=== PATIENT | male | born 1930 | race Caucasian/White ===

== ENCOUNTER 2016-12-06 12:15 | Emergency (ER) | payer OTHER ==
[~2016-12-06] VITALS: Ht 170.2 cm; Wt 64.4 kg
[~2016-12-06 12:15] MED LIST: ATENOLOL50 M1 PO; ATENOLOL50 MG PO; BACLOFEN10 MG PO; CALCIUM600 M1 PO; CATAPRES-TTS 21 EACH TD; CENTRUM SILVER1 EAC3 PO; CLONAZEPAM0.5 MG PO; CLONAZEPAM1 MG PO; CLONIDINE HCL0.3 MG PO; CLONIDINE1 EACH TD; COLACE100 MG PO; DULCOLAX10 MG PR; DUONEB 2.5-0.5 M3 ML AEROSOL; FUROSEMIDE20 MG PO; FUROSEMIDE40 MG PO; HEPARIN SO5000 UNITS SC; HYDRALAZINE HC100 M1 PO; HYDRALAZINE HC100 MG PO; HYDROCODON-ACE1 EAC7 PO; LEVAQUIN750 MG PO; LEVOTHYROXINE50 MCG PO; LEVOTHYROXINE75 MCG PO; LISINOPRIL20 MG PO; LISINOPRIL40 MG PO; METHOTREXATE2.5 MG PO; MIRALAX17 GM PO; MIRALAX255 GM PO; NORCO 5/3251 TABLET PO; PHILLIPS'400 MG/5 M PO; ROCEPHIN1000 MG IV; SENNA LAX8.6 MG PO; SENNA PLUS TAB1 EACH PO; SERTRALINE HCL50 MG PO; TAMSULOSIN HCL0.4 MG PO; TRAMADOL HCL50 MG PO; TYLENOL REGULA325 MG PO; VITAMIN D31000 UNIT PO; ZESTRIL,PRINIVI40 MG PO
[2016-12-06 14:12] VITALS: BP 146/99
== END 2016-12-06 14:23 | disposition home or self-care (01) ==
LOC: EME 12:15
DX: S09.90XA Unspecified injury of head, initial encounter (principal); W05.0XXA Fall from non-moving wheelchair, initial encounter; Z87.442 Personal history of urinary calculi; N40.0 Benign prostatic hyperplasia without lower urinary tract symptoms; M81.0 Age-related osteoporosis without current pathological fracture; I10 Essential (primary) hypertension; E11.9 Type 2 diabetes mellitus without complications; E03.9 Hypothyroidism, unspecified
CPT/HCPCS: 99281; 99284

== ENCOUNTER 2017-04-03 15:57 | Emergency (ER) | payer OTHER ==
[~2017-04-03] VITALS: Ht 170.2 cm; Wt 69.0 kg
[2017-04-03 17:20] LABS: HEMATOCRIT 36.6 % (38.0-50.0); HEMOGLOBIN 12.9 G/DL (12.5-16.6); MCH 35.7 PG (29.0-34.0); MCHC 35.2 G/DL (30.0-36.0); MCV 101.4 FL (86-99); PLATELET COUNT 104 K/uL (156-360); RBC DIS.WIDTH-CV 14.6 % (11.8-14.6); RBC DIS.WIDTH-SD 54.4 % (39-53); RED BLOOD COUNT 3.61 M/uL (4.00-5.50); WHITE BLOOD COUNT 6.3 K/uL (4.1-10.2)
[2017-04-03 17:29] LABS: CHLORIDE 102 mEq/L (99-109); POTASSIUM 4.3 mEq/L (3.7-5.4); SODIUM 137 mEq/L (136-147)
[2017-04-03 17:31] LABS: GLUCOSE 148 mg/dL (70-99)
[2017-04-03 17:35] LABS: CREATININE 0.8 mg/dL (0.6-1.3); GFR ESTIMATE (CALCULATED) > 59 mL/min/ (58.99-99999)
[2017-04-03 17:36] LABS: UREA NITROGEN (BUN) 19 mg/dL (9-23)
[2017-04-03 17:41] LABS: TROP-I INTERPRETATION NEGATIVE; TROPONIN-I 0.01 ng/mL (0.0-0.30)
[2017-04-03 20:04] LABS: APPEARANCE CLEAR ((CLEAR)); BILIRUBIN NEGATIVE; BLOOD NEGATIVE; COLOR YELLOW ((YELLOW)); GLUCOSE (STRIP) NEGATIVE; KETONES NEGATIVE; LEUKOCYTES NEGATIVE; NITRITE NEGATIVE; PROTEIN (STRIP) 30; SPECIFIC GRAVITY 1.018 (1.000-1.030); UROBILINOGEN 0.2 MG/DL (0.2-1.0)
[2017-04-03 20:22] LABS: TROP-I INTERPRETATION NEGATIVE; TROPONIN-I 0.02 ng/mL (0.0-0.30)
[2017-04-03 21:24] VITALS: BP 163/101
== END 2017-04-03 21:27 | disposition home or self-care (01) ==
LOC: EME 15:57
PROVIDERS: Emergency Medicine
DX: S00.83XA Contusion of other part of head, initial encounter (principal); S00.81XA Abrasion of other part of head, initial encounter; S00.11XA Contusion of right eyelid and periocular area, initial encounter; M54.2 Cervicalgia; M25.511 Pain in right shoulder; W06.XXXA Fall from bed, initial encounter; Y92.092 Bedroom in other non-institutional residence as the place of occurrence of the external cause; R11.0 Nausea; M85.88 Other specified disorders of bone density and structure, other site; M19.011 Primary osteoarthritis, right shoulder; I10 Essential (primary) hypertension; E03.9 Hypothyroidism, unspecified
CPT/HCPCS: 70450; 70486; 71046; 72125; 72170; 73030; 80048; 81003; 84484; 85027; 93005; 99281; 99284; J2270; J2405

== ENCOUNTER 2017-07-19 07:10 | Inpatient (IN) | payer OTHER ==
[~2017-07-19] VITALS: Ht 170.2 cm; Wt 68.5 kg
[2017-07-19 08:02] LABS: BASOPHIL (%) 0.4 % (0-1); BASOPHIL COUNT 0.1 K/uL (0-0.1); EOSINOPHIL (%) 0.8 % (0-5); EOSINOPHIL COUNT 0.1 K/uL (0-0.3); HEMATOCRIT 37.5 % (38.0-50.0); IMMATURE GRANULOCYTE (%) 0.8 % (0.0-0.7); LYMPHOCYTE (%) 17.9 % (15-42); MCH 36.1 PG (29.0-34.0); MCHC 34.7 G/DL (30.0-36.0); MCV 104.2 FL (86-99); MONOCYTE (%) 7.6 % (3-12); MONOCYTE COUNT 0.9 K/uL (0-0.8); NEUTROPHIL (%) 72.5 % (45-76); NEUTROPHIL COUNT 8.2 K/uL (1.8-6.4); PLATELET COUNT 137 K/uL (156-360); RBC DIS.WIDTH-CV 14.4 % (11.8-14.6); RBC DIS.WIDTH-SD 54.5 % (39-53); WHITE BLOOD COUNT 11.3 K/uL (4.1-10.2)
[2017-07-19 08:14] LABS: INTER. NORMALIZED RATIO 1.1
[2017-07-19 08:16] LABS: PTT 24.5 SEC (25-37)
[2017-07-19 08:17] LABS: ALBUMIN 3.2 g/dL (3.2-4.8); CHLORIDE 108 mEq/L (99-109); SODIUM 144 mEq/L (136-147)
[2017-07-19 08:18] LABS: MAGNESIUM 1.7 mg/dL (1.3-2.7)
[2017-07-19 08:19] LABS: GLUCOSE 104 mg/dL (70-99)
[2017-07-19 08:20] LABS: TOTAL PROTEIN 5.5 g/dL (6.4-8.3)
[2017-07-19 08:21] LABS: TOTAL BILIRUBIN 0.6 mg/dL (0.0-1.0)
[2017-07-19 08:23] LABS: ALKALINE PHOSPHATASE 61 IU/L (3-129); CREATININE 0.8 mg/dL (0.6-1.3); GFR ESTIMATE (CALCULATED) > 59 mL/min/ (58.99-99999)
[2017-07-19 08:24] LABS: UREA NITROGEN (BUN) 23 mg/dL (9-23)
[2017-07-19 08:25] LABS: AST (GOT) 19 IU/L (2-34)
[2017-07-19 08:26] LABS: ALT (GPT) 18 IU/L (3-49)
[2017-07-19 08:27] LABS: TROP-I INTERPRETATION NEGATIVE
[2017-07-19 09:10] LABS: THYROTROPIN (TSH) 3.5 MIU/L (0.4-5.5)
[2017-07-19] MEDS ORDERED: NYSTOP60 GM TP (10:50)
[2017-07-19] MEDS ORDERED: MYRBETRIQ25 MG PO (10:53)
[2017-07-19] MEDS ORDERED: FOLIC ACID1 MG PO (10:53)
[2017-07-19] MEDS ORDERED: SENNA8.6 MG PO (10:54)
[2017-07-19] MEDS ORDERED: IRON325 M1 PO (10:55)
[2017-07-19] MEDS ORDERED: NORCO 5/3251 TABLET PO (10:56)
[2017-07-19] MEDS ORDERED: ZYTIGA500 MG PO (10:57)
[2017-07-19] MEDS ORDERED: EFFEXOR XR150 MG PO (10:58)
[2017-07-19] MEDS ORDERED: PREDNISONE5 MG PO (11:05)
[2017-07-19] MEDS ORDERED: ASPERCREME 1035.4 GM TP (11:07)
[2017-07-19] MEDS ORDERED: TUSSIN CHE100 MG/5 M PO (11:08)
[2017-07-19 14:23] VITALS: BP 118/74
[2017-07-19 19:27] VITALS: BP 114/80
[2017-07-19 20:57] LABS: TROP-I INTERPRETATION POSITIVE
[2017-07-19 23:56] VITALS: BP 125/76
[2017-07-20 01:06] LABS: TROP-I INTERPRETATION POSITIVE; TROPONIN-I 4.82 ng/mL (0.0-0.30)
[2017-07-20 04:29] VITALS: BP 137/83
[2017-07-20 06:40] LABS: INTER. NORMALIZED RATIO 1.1
[2017-07-20 07:39] LABS: TROP-I INTERPRETATION POSITIVE; TROPONIN-I 3.69 ng/mL (0.0-0.30)
[2017-07-20 07:53] VITALS: BP 131/76
[2017-07-20 12:04] VITALS: BP 134/85
[2017-07-20 15:19] VITALS: BP 119/78
[2017-07-20 18:14] LABS: TROP-I INTERPRETATION POSITIVE; TROPONIN-I 2.75 ng/mL (0.0-0.30)
[2017-07-20 19:25] VITALS: BP 133/79
[2017-07-21] VITALS (18 sets, daily range): BP systolic 105–173; BP diastolic 77–162
[2017-07-21 06:47] LABS: HEMATOCRIT 38.8 % (38.0-50.0); HEMOGLOBIN 13.2 G/DL (12.5-16.6); MCH 35.4 PG (29.0-34.0); PLATELET COUNT 117 K/uL (156-360); RBC DIS.WIDTH-CV 14.4 % (11.8-14.6); RBC DIS.WIDTH-SD 54.9 % (39-53); RED BLOOD COUNT 3.73 M/uL (4.00-5.50); WHITE BLOOD COUNT 6.3 K/uL (4.1-10.2)
[2017-07-21 06:52] LABS: INTER. NORMALIZED RATIO 1.1
[2017-07-21 06:55] LABS: PTT 58.2 SEC (25-37)
[2017-07-21 08:06] LABS: CHLORIDE 105 MEQ/L (99-109); CREATININE 0.8 MG/DL (0.6-1.3); GFR ESTIMATE (CALCULATED) > 59 mL/min/ (58.99-99999); GLUCOSE 130 mg/dL (70-99); POTASSIUM 4.5 MEQ/L (3.7-5.4); SODIUM 140 MEQ/L (136-147); UREA NITROGEN (BUN) 20 mg/dL (9-23)
[2017-07-22] VITALS (15 sets, daily range): BP systolic 127–161; BP diastolic 81–123
[2017-07-22 04:43] LABS: BASOPHIL (%) 0.3 % (0-1); EOSINOPHIL (%) 0.3 % (0-5); HEMATOCRIT 35.5 % (38.0-50.0); HEMOGLOBIN 12.3 G/DL (12.5-16.6); LYMPHOCYTE (%) 7.6 % (15-42); LYMPHOCYTE COUNT 0.7 K/uL (1.0-2.8); MCHC 34.6 G/DL (30.0-36.0); MCV 103.8 FL (86-99); MONOCYTE (%) 5.7 % (3-12); MONOCYTE COUNT 0.5 K/uL (0-0.8); NEUTROPHIL (%) 85.1 % (45-76); NEUTROPHIL COUNT 7.9 K/uL (1.8-6.4); PLATELET COUNT 127 K/uL (156-360); RBC DIS.WIDTH-CV 14.4 % (11.8-14.6); RBC DIS.WIDTH-SD 54.7 % (39-53); RED BLOOD COUNT 3.42 M/uL (4.00-5.50); WHITE BLOOD COUNT 9.3 K/uL (4.1-10.2)
[2017-07-22 05:00] LABS: CHLORIDE 104 mEq/L (99-109); POTASSIUM 4.4 mEq/L (3.7-5.4); SODIUM 140 mEq/L (136-147)
[2017-07-22 05:01] LABS: MAGNESIUM 1.7 mg/dL (1.3-2.7)
[2017-07-22 05:02] LABS: GLUCOSE 121 mg/dL (70-99)
[2017-07-22 05:06] LABS: CREATININE 0.8 mg/dL (0.6-1.3); GFR ESTIMATE (CALCULATED) > 59 mL/min/ (58.99-99999); PHOSPHORUS 2.5 mg/dL (2.5-4.9)
[2017-07-22 05:07] LABS: UREA NITROGEN (BUN) 17 mg/dL (9-23)
[2017-07-23 02:11] VITALS: BP 143/88
[2017-07-23 05:15] LABS: BASOPHIL (%) 0.3 % (0-1); EOSINOPHIL (%) 0.8 % (0-5); EOSINOPHIL COUNT 0.1 K/uL (0-0.3); HEMATOCRIT 37.1 % (38.0-50.0); HEMOGLOBIN 12.7 G/DL (12.5-16.6); IMMATURE GRANULOCYTE (%) 0.5 % (0.0-0.7); LYMPHOCYTE (%) 11.6 % (15-42); LYMPHOCYTE COUNT 0.9 K/uL (1.0-2.8); MCH 35.3 PG (29.0-34.0); MCHC 34.2 G/DL (30.0-36.0); MCV 103.1 FL (86-99); MONOCYTE (%) 6.2 % (3-12); MONOCYTE COUNT 0.5 K/uL (0-0.8); NEUTROPHIL (%) 80.6 % (45-76); NEUTROPHIL COUNT 6.1 K/uL (1.8-6.4); PLATELET COUNT 139 K/uL (156-360); RBC DIS.WIDTH-CV 14.5 % (11.8-14.6); RBC DIS.WIDTH-SD 54.7 % (39-53); WHITE BLOOD COUNT 7.6 K/uL (4.1-10.2)
[2017-07-23 05:50] LABS: CHLORIDE 102 MEQ/L (99-109); CREATININE 0.7 MG/DL (0.6-1.3); GFR ESTIMATE (CALCULATED) > 59 mL/min/ (58.99-99999); GLUCOSE 142 mg/dL (70-99); POTASSIUM 4.1 MEQ/L (3.7-5.4); SODIUM 139 MEQ/L (136-147); UREA NITROGEN (BUN) 17 mg/dL (9-23)
[2017-07-23 08:00] VITALS: BP 137/101
[2017-07-23 12:00] VITALS: BP 94/59
[2017-07-23 16:27] VITALS: BP 118/74
[2017-07-23 20:01] VITALS: BP 119/71
[2017-07-24 00:14] VITALS: BP 141/94
[2017-07-24 03:38] VITALS: BP 135/92
[2017-07-24 08:29] VITALS: BP 112/86
[2017-07-24 11:30] VITALS: BP 102/71
[2017-07-24] MEDS ORDERED: ELIQUIS5 MG PO (15:14)
[2017-07-24] MEDS ORDERED: LOPRESSOR25 MG PO (15:15)
[2017-07-24] MEDS ORDERED: DILTIAZEM 24HR120 MG PO (15:15)
[2017-07-24 15:56] VITALS: BP 112/72
== END 2017-07-24 16:48 | disposition home or self-care (01) | DRG 281 ==
LOC: EME → EDBD 07:10 → EDOF 11:01 → 4WEST 11:01 → 4EAST 11:01 → 3EAST 11:01 → ENRESERV 11:07 → 4EAST 13:57 → ENRESERV 07-21 13:33 → 4EAST 07-21 13:56 → 4WEST 07-21 14:03 → ENRESERV 07-22 10:46 → 4EAST 07-22 11:51 → ENRESERV 07-23 10:04 → 3EAST 07-23 15:11
PROVIDERS: Emergency Medicine; Internal Medicine; Internal Medicine Cardiovascular Disease; Internal Medicine Critical Care Medicine; Surgery
DX: I48.0 Paroxysmal atrial fibrillation (principal); I21.4 Non-ST elevation (NSTEMI) myocardial infarction; I25.10 Atherosclerotic heart disease of native coronary artery without angina pectoris; I97.638 Postprocedural hematoma of a circulatory system organ or structure following other circulatory system procedure; Y83.8 Other surgical procedures as the cause of abnormal reaction of the patient, or of later complication, without mention of misadventure at the time of the procedure; J44.9 Chronic obstructive pulmonary disease, unspecified; I95.9 Hypotension, unspecified; E03.9 Hypothyroidism, unspecified; I34.0 Nonrheumatic mitral (valve) insufficiency; R33.8 Other retention of urine; E11.9 Type 2 diabetes mellitus without complications; J90 Pleural effusion, not elsewhere classified; J98.11 Atelectasis; I10 Essential (primary) hypertension; I77.819 Aortic ectasia, unspecified site; E55.9 Vitamin D deficiency, unspecified; I25.2 Old myocardial infarction; M79.1 Myalgia; K58.0 Irritable bowel syndrome with diarrhea; M06.9 Rheumatoid arthritis, unspecified; E78.5 Hyperlipidemia, unspecified; R01.1 Cardiac murmur, unspecified; R26.9 Unspecified abnormalities of gait and mobility; R53.1 Weakness; M81.0 Age-related osteoporosis without current pathological fracture; N32.81 Overactive bladder; N40.0 Benign prostatic hyperplasia without lower urinary tract symptoms; D64.9 Anemia, unspecified; F32.9 Major depressive disorder, single episode, unspecified; M19.90 Unspecified osteoarthritis, unspecified site; Z66 Do not resuscitate; Z85.46 Personal history of malignant neoplasm of prostate; Z87.01 Personal history of pneumonia (recurrent); Z87.442 Personal history of urinary calculi; Z92.3 Personal history of irradiation
CPT/HCPCS: 71045; 80048; 80053; 83735; 83880; 84100; 84439; 84443; 84484; 85025; 85027; 85347; 85610; 85730; 87641; 93005; 93306; 97530 GO; 97530 GP; 99281; 99285; C1750; C1769; C1887; C1894; J1160; J1644; J2060; J2250; J2405; J3010; J7040; J7512; J8610